=== PATIENT | female | born 1970 | race African-American/Black ===

== ENCOUNTER 2025-01-03 19:14 | Emergency (ER) | payer SELFPAY ==
--- NOTE | 2025-01-03 19:15 | ED.SKABFB ---
HPI - Skin/Abscess/Foreign Bdy General Chief complaint: Skin/Abscess/Foreign Body Stated complaint: Skin Irritation Time Seen by Provider: 01/03/25 19:15 Source: patient Mode of arrival: ambulatory Limitations: no limitations History of Present Illness HPI narrative: Jossie is a 54-year-old female patient presenting to the clinic today with complaints intermittent left sided facial paresthesia and headache. Fells as though her left cheek is swollen. She reports symptoms have been going off and on for the last 2-3 days. History of migraine headaches as a child. No drooling or difficulty swallowing, No slurred speech or weakness. No known injury, No history of bells palsy. Denies any visual changes, dizziness, chest pain, or sob. Is currently traveling for work. Is heading towards [facility] to stay for the night. Rates headache left side of her head 01/17. Related Data Home Medications ?Medication ?Instructions ?Recorded ?Confirmed ?Last Taken ?Type No Home Medications 01/03/25 01/03/25 Unknown History Allergies Allergy/AdvReac Type Severity Reaction Status Date / Time No Known Allergies Allergy Verified 01/03/25 19:23 Review of Systems Review of Systems: Pertinent positives per HPI. Patient denies any fever, chills, rash,visual changes, dizziness, cough, runny nose, sore throat, shortness of breath, chest pain, palpitations, nausea, vomiting, diarrhea, constipation, abdominal pain, or any urinary issues. PMFSH Comments At the time of my signature, I reviewed and agree with the nursing past medical, surgical, social, and family history. There is no relevant family history pertinent to the patient complaint. Exam Narrative: General: Well-developed, well nourished, in no apparent distress Head: Normocephalic, atraumatic Eyes: Pupils equally round and reactive to light bilaterally, EOM intact, sclera and conjunctive clear, no discharge, lids normal Ears: TMs intact and clear, ear canals clear, no drainage, grossly hearing normal. Nose: Nares patent, no discharge, no inflammation, no sinus tenderness. Mouth: Oropharynx without lesions or masses, good dentition, MMM. Tongue midline, even rise and fall of uvula Neck: Supple, trachea midline, no enlargement of anterior or posterior cervical nodes, no thyroid masses or goiter palpable. Cardio: Regular rate and rhythm, s1 and s2 normal, no murmur appreciated. Resp: Clear to auscultation bilaterally anteriorly and posteriorly, no rhonchi, rales, wheezing or rubs Musculoskeletal: No deformity, non-tender to palpation, grossly normal range of motion, muscle strength strong and equal, peripheral pulse strong, no edema, no cyanosis, normal gait and station Neuro: Alert and oriented x4 with normal speech, no focal deficits, cranial nerves I through XII intact, muscle strength 5 out of 5, sensation intact bilaterally, negative Romberg test Course Course Emergency Course: Portions of this record may have been created with voice recognition software. Level of Care: Express Care Visit Vital Signs Vital signs: Vital Signs Temperature 36.4 C L 01/03/25 19:24 Pulse Rate 110 H 01/03/25 19:24 Respiratory Rate 16 01/03/25 19:24 Blood Pressure 134/76 01/03/25 19:24 Pulse Oximetry 99 01/03/25 19:24 Temperature 36.4 C L 01/03/25 19:24 Pulse Rate 110 H 01/03/25 19:24 Respiratory Rate 16 01/03/25 19:24 Blood Pressure 134/76 01/03/25 19:24 Pulse Oximetry 99 01/03/25 19:24 Vital signs reviewed MDM - Skin/Abscess/Foreign Bdy MDM Narrative Medical decision making narrative: At the time of visit patient is resting comfortably on the exam table. Patient appears to be nontoxic. Medications: Tylenol 1 GM po Plan: Neuro exam is normal in the clinic. Reporting headache with some facial paresthesia- cheek feeling fat . Will give Tylenol 1 g in the clinic today. Offered to send to the patient to the emergency room and she declined at this time and would like to go to [place] and seek medical care there if her symptoms persist. Supportive measures were discussed with the patient and they voiced understanding discharge instructions and agrees to treatment plan. Return precautions reviewed Differential Diagnosis Differential diagnosis: Likely abscess of skin or subcutaneous tissue, viral exanthem, herpes zoster, contact dermatitis and other (migraine headache, bells palsy, tia, CVA) Discharge Plan Discharge Clinical Impression: Facial paresthesia Headache Qualifiers: Headache type: unspecified Headache chronicity pattern: acute headache Intractability: not intractable Qualified Code(s): R51.9 - Headache, unspecified Patient Disposition: Home, Self-Care Condition: Stable Instructions: Antibiotic Form, Acute Headache (ED), Paresthesia (ED) Additional Instructions: Normal exam in the clinic today Neurological exam is normal in the clinic today Recommend Tylenol as needed for headache You may need blood work and CT of head if symptoms persist/worsen. If you are concerned about your symptoms or if your symptoms get worse she may go to the emergency room for further evaluation Follow-up with your primary care doctor Patient Language: Dutch Prescriptions: No Action No Home Medications Follow-up/Referrals: UNKNOWN,DOCTOR [Non-Staff] - Time of Disposition: 19:43 Quality NIHSS Nursing Documentation ED NIHSS nursing documentation: reviewed/agree
[2025-01-03 19:24] VITALS: BP 134/76; PULSE 110; RESP 16; TEMP 36.4; O2SAT 99
[2025-01-03] MEDS: ACETAMINOPHEN 500 MG TABLET 1000 MG PO (20:00)
== END 2025-01-03 20:03 | disposition home or self-care (01) ==
LOC: EXPGOSH 19:17
PROVIDERS: Emergency Provider Nurse Practitioner Family
DX: R20.2 Paresthesia of skin (principal); R51.9 Headache, unspecified
CPT/HCPCS: 99212; A9270; G0463